=== PATIENT | female | born 1945 | race Caucasian/White ===

== ENCOUNTER 2018-05-05 08:14 | Day surgery (SDC) | payer MEDICARE ==
[~2018-05-05 08:14] MED LIST: ACETAMINOPHEN 325 MG TAB PO; CYCLOPENTOLATE 2% OPHTH SOLN 2ML BTL OS; LIDOCAINE 3.5 % 1ML OPHTH TOPICAL GEL OU; OFLOXACIN 0.3 % (OCUFLOX) OPTH SOL 5ML OS; PHENYLEPHRINE 2.5% OPHTH SOL 2ML OS; PHENYLEPHRINE HCL 10 % OPHTH. SOL 5ML OS; PROPARACAINE 0.5% OPHTH SOL 15ML OS; TROPICAMIDE 1% OPHTH SOLN 2ML OS
[2018-05-05] MEDS ORDERED: CEFUROXIME 1MG/0.1ML INTRACAMERAL INJ As Ordered (08:25)
[2018-05-05] MEDS ORDERED: fentaNYL 100 MCG/2 ML INJECTION (J3010) As Ordered (09:28)
[2018-05-05] MEDS ORDERED: MIDAZOLAM INJ 2 MG/2 ML VIAL (J2250) As Ordered (09:28)
[2018-05-05] MEDS ORDERED: TRIMETHOBENZAMIDE 300 MG CAP PO (10:00)
[2018-05-05] MEDS ORDERED: KETOROLAC 0.5% OPHTH SOLN OS (10:00)
[2018-05-05] MEDS: POVIDONE-IODINE 5% OPHTH PREP SOL 30ML As Ordered (10:18)
[2018-05-05] MEDS: BALANCED SALT IRRIGATION SOLUTION 500ML BAG (FOR OR EYE MACHINE) As Ordered (10:20)
[2018-05-05] MEDS: HEALON DUET (HEALON 10MG/ML 0.55ML & HEALON ENDOCOAT 30MG/ML 0.85ML) As Ordered (10:20)
[2018-05-05] MEDS: LIDOCAINE 1% SDV 5 ML VIAL As Ordered (10:21)
[2018-05-05] MEDS: AcetaZOLAMIDE 500 MG ER CAP PO (11:15)
== END 2018-05-05 11:31 | disposition home or self-care (01) ==
LOC: M SDC 08:14
DX: H25.12 Age-related nuclear cataract, left eye (principal); H52.202 Unspecified astigmatism, left eye; I10 Essential (primary) hypertension; E78.00 Pure hypercholesterolemia, unspecified; K21.9 Gastro-esophageal reflux disease without esophagitis; M85.80 Other specified disorders of bone density and structure, unspecified site; L40.9 Psoriasis, unspecified; R51 Headache; N28.1 Cyst of kidney, acquired; Z88.5 Allergy status to narcotic agent; Z88.8 Allergy status to other drugs, medicaments and biological substances; Z91.040 Latex allergy status; Z79.899 Other long term (current) drug therapy; Z86.14 Personal history of Methicillin resistant Staphylococcus aureus infection; Z78.0 Asymptomatic menopausal state; Z98.51 Tubal ligation status; Z96.652 Presence of left artificial knee joint; Z87.891 Personal history of nicotine dependence
CPT/HCPCS: 66984

== ENCOUNTER 2018-06-02 10:39 | Day surgery (SDC) | payer MEDICARE ==
[~2018-06-02 10:39] MED LIST changes: -ACETAMINOPHEN 325 MG TAB PO; -CYCLOPENTOLATE 2% OPHTH SOLN 2ML BTL OS; -LIDOCAINE 3.5 % 1ML OPHTH TOPICAL GEL OU; -OFLOXACIN 0.3 % (OCUFLOX) OPTH SOL 5ML OS; -PHENYLEPHRINE 2.5% OPHTH SOL 2ML OS; +PHENYLEPHRINE HCL 10 % OPHTH. SOL 5ML OD; -PHENYLEPHRINE HCL 10 % OPHTH. SOL 5ML OS; -PROPARACAINE 0.5% OPHTH SOL 15ML OS; -TROPICAMIDE 1% OPHTH SOLN 2ML OS
[2018-06-02] MEDS: CYCLOPENTOLATE 2% OPHTH SOLN 2ML BTL OD (12:05)
[2018-06-02] MEDS: OFLOXACIN 0.3 % (OCUFLOX) OPTH SOL 5ML OD (12:05)
[2018-06-02] MEDS: LIDOCAINE 3.5 % 1ML OPHTH TOPICAL GEL OU (12:05)
[2018-06-02] MEDS: PHENYLEPHRINE 2.5% OPHTH SOL 2ML OD (12:05)
[2018-06-02] MEDS: TROPICAMIDE 1% OPHTH SOLN 2ML OD (12:05)
[2018-06-02] MEDS: POVIDONE-IODINE 5% OPHTH PREP SOL 30ML As Ordered (13:21)
[2018-06-02] MEDS: LIDOCAINE 1% SDV 5 ML VIAL As Ordered (13:24)
[2018-06-02] MEDS: BALANCED SALT IRRIGATION SOLUTION 500ML BAG (FOR OR EYE MACHINE) As Ordered (13:24)
[2018-06-02] MEDS: HEALON DUET PRO(HEALON 10MG/ML 0.55ML & HEALON ENDOCOAT 30MG/ML 0.85ML) As Ordered (13:24)
[2018-06-02] MEDS: CEFUROXIME 1MG/0.1ML INTRACAMERAL INJ As Ordered (13:24)
[2018-06-02] MEDS ORDERED: MIDAZOLAM INJ 2 MG/2 ML VIAL (J2250) As Ordered (13:29)
[2018-06-02] MEDS ORDERED: fentaNYL 100 MCG/2 ML INJECTION (J3010) As Ordered (13:29)
== END 2018-06-02 14:15 | disposition home or self-care (01) ==
LOC: M SDC 10:39
DX: H25.11 Age-related nuclear cataract, right eye (principal); H52.201 Unspecified astigmatism, right eye; I10 Essential (primary) hypertension; E78.5 Hyperlipidemia, unspecified; K21.9 Gastro-esophageal reflux disease without esophagitis; Z87.891 Personal history of nicotine dependence; Z91.040 Latex allergy status; Z79.899 Other long term (current) drug therapy
CPT/HCPCS: 66984